=== PATIENT | female | born 1995 | race Caucasian/White ===

== ENCOUNTER 2017-07-02 13:25 | Emergency (ER) | payer BC ==
[~2017-07-02] VITALS: Ht 160 cm; Wt 64.0 kg
[2017-07-02 13:32] VITALS: TEMP 37; Ht 160 cm; Wt 64.0 kg
--- NOTE | 2017-07-02 14:20 | EMERGENCY ROOM VISIT NOTE ---
History Report prepared by Micah: Telma Sutherland Under the Supervision of: Dr. Paul Mon D.O. First contact with patient: 13:49 Chief Complaint: MENTAL HEALTH EVALUATION Stated Complaint: DEPRESSION History of Present Illness The patient is a 21 year old female who presents to the Emergency Room for a mental health evaluation after worsening depression beginning this past week. The patient states that she has a history of depression and has been feeling more depressed over the last week after having increasing stress from school. She reports that she has been having suicidal ideation with a plan to take pills but she does not think that she would do it. She notes that today she called her sister about her depression and she got a call from her PCP that told her to go to [facility]. After going to [facility], the patient was sent in here to the ED for further evaluation. The patient denies any self harm, changes in eating, and changes in drinking. She notes that she is on fluoxetine for depression and has been taking it normally. She notes that her LNMP was 1 month ago and she has a history of PCOS and does not get her period regularly. She states that she is on control and there is no chance of . Source of History: patient Onset: 1 week ago Position: other (mental health) Quality: other (depression) Timing: worsening Modifying Factors (Worsening): other (stress from school) Note: Pt has suicidal ideation with a plan. The patient denies any self harm, changes in eating, and changes in drinking. Review of Systems See HPI for pertinent positives & negatives. A total of 10 systems reviewed and were otherwise negative. Past Medical & Surgical Medical Problems: (1) Depression Family History No pertinent family history stated. Social History Smoking Status: Never Smoker Marital Status: single Housing Status: lives with roommate Occupation Status: [employer] student Current/Historical Medications Scheduled Control Pills ( Control Pills), 1 TAB PO DAILY Cholecalciferol (Vitamin D3), 1,000 UNITS PO DAILY Fish Oil ([place]-3), 1 CAP PO DAILY Fluoxetine (Prozac), 20 MG PO QAM Multivitamin (Multivitamin), 1 TAB PO DAILY Allergies Coded Allergies: No Known Allergies (Unverified , 07/02/17) Physical Exam Vital Signs Date Time Temp Pulse Resp B/P (MAP) Pulse Ox O2 Delivery O2 Flow Rate FiO2 07/02/17 18:00 74 16 105/66 96 07/02/17 15:11 64 18 100/62 95 Room Air 07/02/17 13:32 37.0 83 18 108/71 99 Room Air Physical Exam GENERAL: sitting up in bed, alert, well appearing, well nourished, no distress , non-toxic EYE EXAM: normal conjunctiva OROPHARYNX: no exudate, no erythema, lips, buccal mucosa, and tongue normal and mucous membranes are moist NECK: supple, no nuchal rigidity, no adenopathy, non-tender LUNGS: Clear to auscultation. Normal chest wall mechanics HEART: no murmurs, S1 normal and S2 normal ABDOMEN: abdomen soft, non-tender, normo-active bowel sounds, no masses, no rebound or guarding. BACK: Back is symmetrical on inspection and there is no deformity, no midline tenderness, no CVA tenderness. SKIN: no rashes and no bruising UPPER EXTREMITIES: upper extremities are grossly normal. LOWER EXTREMITIES: No pitting edema. NEURO EXAM: Normal sensorium, cranial nerves II-XII grossly intact, normal speech, no gross weakness of arms, no gross weakness of legs. PYSCH: Admits to suicidal thought yesterday w/ plan to use meds. Denies HI, auditory and visual hallucinations Medical Decision & Procedures Laboratory Results 07/02/17 15:17 Red Blood Count 4.79, Mean Corpuscular Volume 90.6, Mean Corpuscular Hemoglobin 31.9, Mean Corpuscular Hemoglobin Concent 35.3, Mean Platelet Volume 10.1, Neutrophils (%) (Auto) 69.8, Lymphocytes (%) (Auto) 21.8, Monocytes (%) (Auto) 7.9, Eosinophils (%) (Auto) 0.1, Basophils (%) (Auto) 0.3, Neutrophils # (Auto) 4.78, Lymphocytes # (Auto) 1.49, Monocytes # (Auto) 0.54, Eosinophils # (Auto) 0.01, Basophils # (Auto) 0.02 07/02/17 15:17 Test 07/02/17 14:30 07/02/17 15:17 Urine Color DK YELLOW Urine Appearance TURBID (CLEAR) Urine pH 7.5 (4.5-7.5) Urine Specific [place] 1.031 (1.000-1.030) Urine Protein NEG (NEG) Urine Glucose (UA) NEG (NEG) Urine Ketones TRACE (NEG) Urine Occult Blood NEG (NEG) Urine Nitrite NEG (NEG) Urine Bilirubin NEG (NEG) Urine Urobilinogen NEG (NEG) Urine Leukocyte Esterase NEG (NEG) Urine WBC (Auto) 5-10 /hpf (0-5) Urine RBC (Auto) 10-30 /hpf (0-4) Urine Hyaline Casts (Auto) 0 /lpf (0-5) Urine Epithelial Cells (Auto) >30 /lpf (0-5) Urine Bacteria (Auto) 1+ (NEG) Urine Renal Epithelial Cells /lpf (0-5) Urine Pathogenic Casts /lpf (0) Urine Test NEG (NEG) Urine Opiates Screen NEG (NEG) Urine Methadone, Qualitative NEG (NEG) Urine Barbiturates NEG (NEG) Urine Phencyclidine (PCP) Level NEG (NEG) Ur Amphetamine/Methamphetamine NEG (NEG) MDMA (Ecstasy) Screen NEG (NEG) Urine Benzodiazepines Screen NEG (NEG) Urine Cocaine Metabolite NEG (NEG) Urine Marijuana (THC) NEG (NEG) White Blood Count 6.85 K/uL (4.8-10.8) Red Blood Count 4.79 M/uL (4.2-5.4) Hemoglobin 15.3 g/dL (12.0-16.0) Hematocrit 43.4 % (37-47) Mean Corpuscular Volume 90.6 fL (80-100) Mean Corpuscular Hemoglobin 31.9 pg (25-34) Mean Corpuscular Hemoglobin Concent 35.3 g/dl (32-36) Platelet Count 274 K/uL (130-400) Mean Platelet Volume 10.1 fL (7.4-10.4) Neutrophils (%) (Auto) 69.8 % Lymphocytes (%) (Auto) 21.8 % Monocytes (%) (Auto) 7.9 % Eosinophils (%) (Auto) 0.1 % Basophils (%) (Auto) 0.3 % Neutrophils # (Auto) 4.78 K/uL (1.4-6.5) Lymphocytes # (Auto) 1.49 K/uL (1.2-3.4) Monocytes # (Auto) 0.54 K/uL (0.11-0.59) Eosinophils # (Auto) 0.01 K/uL (0-0.5) Basophils # (Auto) 0.02 K/uL (0-0.2) RDW Standard Deviation 40.8 fL (36.4-46.3) RDW Coefficient of Variation 12.4 % (11.5-14.5) Immature Granulocyte % (Auto) 0.1 % Immature Granulocyte # (Auto) 0.01 K/uL (0.00-0.02) Anion Gap 7.0 mmol/L (3-11) Est Creatinine Clear Calc Drug Dose 90.0 ml/min Estimated GFR () 107.4 Estimated GFR (Non- 92.6 BUN/Creatinine Ratio 14.8 (10-20) Calcium Level 9.5 mg/dl (8.5-10.1) Total Bilirubin 0.4 mg/dl (0.2-1) Direct Bilirubin < 0.1 mg/dl (0-0.2) Aspartate Amino Transf (AST/SGOT) 18 U/L (15-37) Alanine Aminotransferase (ALT/SGPT) 18 U/L (12-78) Alkaline Phosphatase 58 U/L (45-117) Total Protein 7.4 gm/dl (6.4-8.2) Albumin 4.1 gm/dl (3.4-5.0) Thyroid Stimulating Hormone (TSH) 1.470 uIu/ml (0.300-4.500) Ethyl Alcohol mg/dL < 3.0 mg/dl (0-3) Laboratory results per my review. ED Course ED COURSE: Vital signs were reviewed and normal The patients medical record was reviewed The above diagnostic studies were performed and reviewed. ED treatments and interventions as stated above. 1349: The patient was evaluated in room A2. A complete history and physical examination was performed. 1708: I reevaluated and updated the patient. The patient notes that she had thoughts of self-harm yesterday. 1802: Upon reevaluation, the patient is doing well.I discussed my findings with the patient and she understands and agrees with the treatment plan. Based on the patients age, coexisting illnesses, exam and lab findings the decision to treat as an outpatient was made. The patient remained stable while under my care. The patient appeared well at the time of discharge. Medical Decision Differential diagnosis: Etiologies such as mood disorder, infection, hypoglycemia, electrolyte abnormalities, cardiac sources, intracerebral event, toxicologic, neurologic, as well as others were entertained. Patient is a 21-year-old female had had a conversation with her sister within the past 24 hours about how depressed she was. She did not make any suicidal statements to her sister. Her sister called her PCP who had her go in to see [facility]. She was seen at [facility] and referred into the ER. She admits that she has had thoughts of overdosing which has been present over the past week intermittently as she has been stressed out with school and classes. She last had thoughts yesterday. She denies any thoughts today. Patient denies any homicidal thoughts. She denies any previous suicide attempts. Patient has no other complaints. Labs were obtained and CBC all BMP, LFTs, bilirubin and TSH were unremarkable. Tox including alcohol is negative. UA was contaminated. No urinary symptoms. was negative. Patient was evaluated by our psychiatric field care manager. She scored a 2 on the suicide risk. Laney discussed findings with her sister as well. Following a long conversation with the patient she again denies any suicidal ideations today. She notes that she would never kill herself. 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 She is also looking forward graduating. She does not want to come in to the hospital. Discussed with Laney and notes that there is no grounds for a 302 at this time. Patient does offer clear insight. Although depression makes good eye contact and her sisters coming up to see her tomorrow. She was able to safety plan. She does have outpatient follow-up with PCP and therapist coming out. After a long conversation follow-up was reasonable to discharge her and have her follow-up with psychiatry. She was agreeable to return if anything worsened. She notes that the main reason she came in today was she was hoping that she could get a medication adjustment. Discussed with Pt concerning signs and symptoms to watch out for. Pt was instructed to follow up with their PCP and discussed with the patient their option to return to the ED at anytime for persistent or worsening symptoms. The appropriate anticipatory guidance and out-patient management, including indications for return to the emergency department, were explained at length to the patient and understood. Medication Reconcilliation Current Medication List: was personally reviewed by me Blood Pressure Screening Patient's blood pressure: Normal blood pressure Blood pressure disposition: Did not require urgent referral Impression Primary Impression: Mood disorder Scribe Attestation The scribe's documentation has been prepared under my direction and personally reviewed by me in its entirety. I confirm that the note above accurately reflects all work, treatment, procedures, and medical decision making performed by me. Departure Information Dispostion Home / Self-Care Referrals No Doctor, Assigned (PCP) Forms HOME CARE DOCUMENTATION FORM, IMPORTANT VISIT INFORMATION Patient Instructions ED Depression, My [facility] Additional Instructions Please follow up with your primary care doctor with in the next 24 hours. Any worsening of your symptoms, please return to the ED immediately. This includes any thoughts of self-harm, thoughts of harming anyone else, not eating or drinking, not caring for yourself, or any other concerning signs or symptoms from your standpoint.
[2017-07-02] MEDS ORDERED: FLUO20CA35 PO (14:34)
[2017-07-02] MEDS ORDERED: OMEG10007 PO (14:35)
[2017-07-02] MEDS ORDERED: BCPILLS PO (14:35)
[2017-07-02] MEDS ORDERED: CHOL1000 PO (14:35)
[2017-07-02] MEDS ORDERED: MULT-506 PO (14:35)
[2017-07-02 14:56] LABS: URINE APPEARANCE TURBID (CLEAR); URINE BILIRUBIN NEG (NEG); URINE COLOR DK YELLOW; URINE EPITHELIAL CELL AUTO >30 /lpf (0-5); URINE NITRITE NEG (NEG); URINE PH 7.5 (4.5-7.5); URINE SPECIFIC GRAVITY 1.031 (1.000-1.030); UROBILINOGEN NEG (NEG)
[2017-07-02 15:11] LABS: MANUAL MICROSCOPIC REQUIRED? NO; REVIEW REQ? YES
[2017-07-02 15:29] LABS: BASO % 0.3 %; BASO ABS # 0.02 K/uL (0-0.2); COMPLETE YES; EOS % 0.1 %; HEMATOCRIT 43.4 % (37-47); IG% 0.1 %; LYMPH % 21.8 %; LYMPH ABS # 1.49 K/uL (1.2-3.4); MEAN CELL VOLUME 90.6 fL (80-100); MEAN CORPUSCULAR HEMOGLOBIN 31.9 pg (25-34); MEAN CORPUSCULAR HGB CONC 35.3 g/dl (32-36); MEAN PLATELET VOLUME 10.1 fL (7.4-10.4); MONO % 7.9 %; NEUT % 69.8 %; PLATELET COUNT 274 K/uL (130-400); RED BLOOD COUNT 4.79 M/uL (4.2-5.4); WHITE BLOOD COUNT 6.85 K/uL (4.8-10.8)
[2017-07-02 15:37] LABS: BENZODIAZEPINE, URINE NEG (NEG); COCAINE,URINE NEG (NEG); PHENCYCLIDINE, URINE NEG (NEG)
[2017-07-02 15:55] LABS: ALT/SGPT 18 U/L (12-78); AST/SGOT 18 U/L (15-37); BLOOD UREA NITROGEN 13 mg/dl (7-18); BUN/CREATININE RATIO 14.8 (10-20); CALCIUM 9.5 mg/dl (8.5-10.1); CARBON DIOXIDE 27 mmol/L (21-32); CHLORIDE 105 mmol/L (98-107); CREATININE 0.89 mg/dl (0.60-1.20); GLUCOSE 81 mg/dl (70-99); POTASSIUM 3.9 mmol/L (3.5-5.1); SODIUM 139 mmol/L (136-145)
[2017-07-02 16:05] LABS: ALKALINE PHOSPHATASE 58 U/L (45-117)
[2017-07-02 18:00] VITALS: BP 105/66; PULSE 74; O2SAT 96
== END 2017-07-02 18:00 | disposition home or self-care (01) ==
LOC: C.EDB 13:27 → C.EDA 18:00
DX: F39 Unspecified mood [affective] disorder (principal); R45.851 Suicidal ideations; E28.2 Polycystic ovarian syndrome; Z79.899 Other long term (current) drug therapy